=== PATIENT | male | born 1970 | race Caucasian/White ===

== ENCOUNTER → 2016-10-16 | Outpatient (CLI) | payer OTHER | LOC: EMI 10-08 09:00 | DX: R51 Headache (principal); H53.9 Unspecified visual disturbance | CPT/HCPCS: 70553; A9577; J7050 ==

== ENCOUNTER 2017-01-31 22:32 | Emergency (ER) | payer OTHER | END 2017-02-01 02:54 | disposition home or self-care (01) | LOC: ER1 22:32 | DX: S93.402A Sprain of unspecified ligament of left ankle, initial encounter (principal); F17.210 Nicotine dependence, cigarettes, uncomplicated; X50.1XXA Overexertion from prolonged static or awkward postures, initial encounter; Y92.009 Unspecified place in unspecified non-institutional (private) residence as the place of occurrence of the external cause | CPT/HCPCS: 29515; 73590; 73610; 99283 ==